=== PATIENT | female | born 1945 | race Caucasian/White ===

== ENCOUNTER → 2016-09-25 | Outpatient (CLI) | payer MEDICARE, BC ==
[~2016-09-25] MED LIST: CHLO25TA PO; ERGO500017 PO; FORM12CA PO; LEVA15HF2 PO; LISI2.5T PO; MONT10TA9 PO; POTA20TA6 PO; PRED2.5T PO; UMEC1DIS INH; VITAMIN D SC
== END | disposition home or self-care (01) ==
LOC: STAR 10:41
PROVIDERS: ATTEND Surgery
DX: Z01.810 Encounter for preprocedural cardiovascular examination (principal); K80.10 Calculus of gallbladder with chronic cholecystitis without obstruction
CPT/HCPCS: 93005

== ENCOUNTER 2016-09-30 11:06 | Day surgery (SDC) | payer MEDICARE, BC ==
[~2016-09-30] VITALS: Ht 156.2 cm; Wt 44.5 kg
[~2016-09-30 11:06] MED LIST changes: +BUPIVACAINE/PF-EPI 0.5% 1:200K ONE
[2016-09-30] MEDS ORDERED: LIDOCAINE 1%, 2ML ONE (11:55)
[2016-09-30] MEDS ORDERED: LACTATED RINGERS 1,000 ML IV SCH (11:57)
[2016-09-30 11:58] VITALS: BP 150/90
[2016-09-30] MEDS ORDERED: LIDOCAINE 1%, 2ML SQ PRN (12:00)
[2016-09-30] MEDS ORDERED: INDOCYANINE GREEN 25 MG VIAL IV ONE (12:12)
[2016-09-30] MEDS ORDERED: INDOCYANINE GREEN 25 MG VIAL ONE (12:30)
[2016-09-30] MEDS ORDERED: SCOPOLAMINE PATCH, 1.5MG PATCH.TD72 TD ONE ×2 (12:55)
[2016-09-30] MEDS ORDERED: FENTANYL PF 250 MCG/5ML ONE ×2 (12:55)
[2016-09-30] MEDS ORDERED: MIDAZOLAM 1 MG/ML, 2ML ONE ×2 (12:55)
[2016-09-30] MEDS ORDERED: GLYCOPYRROLATE 0.2MG/1ML ONE (13:03)
[2016-09-30] MEDS ORDERED: DEXAMETHASONE 4 MG/ML, 1ML ONE (13:03)
[2016-09-30] MEDS ORDERED: NEOSTIGMINE 1 MG/ML, 10ML ONE (13:03)
[2016-09-30] MEDS ORDERED: LABETALOL 5MG/ML 40ML VIAL ONE (13:03)
[2016-09-30] MEDS ORDERED: KETOROLAC 30 MG/1 ML ONE (13:03)
[2016-09-30] MEDS ORDERED: PROPOFOL 10 MG/ML, 20ML ONE (13:03)
[2016-09-30] MEDS ORDERED: ONDANSETRON 2MG/ML, 2ML ONE (13:03)
[2016-09-30] MEDS ORDERED: ROCURONIUM 10 MG/ML ONE (13:03)
[2016-09-30] MEDS ORDERED: CEFOTETAN 1 GM ONE (13:03)
[2016-09-30] MEDS ORDERED: METOCLOPRAMIDE 5 MG/ML, 2ML ONE (13:03)
[2016-09-30] MEDS ORDERED: OXYcodone 5 MG/5 ML ORAL.SOL UDC PO PRN (13:30)
[2016-09-30] MEDS ORDERED: PROMETHAZINE 25 MG/ML, 1ML IV PRN (13:30)
[2016-09-30] MEDS ORDERED: hydrALAzine 20 MG/ML, 1ML IV PRN (13:30)
[2016-09-30] MEDS ORDERED: ACETAMINOPHEN 325 MG TABLET PO PRN (13:30)
[2016-09-30] MEDS ORDERED: HYDROmorphone 1 MG/ML, 1ML IV PRN (13:30)
[2016-09-30] MEDS ORDERED: LABETALOL 5MG/ML, 20ML IV PRN (13:30)
[2016-09-30] MEDS ORDERED: ONDANSETRON 2MG/ML, 2ML IVPush PRN (13:30)
[2016-09-30] MEDS ORDERED: FENTANYL PF 100 MCG/2ML IV PRN (13:30)
== END 2016-09-30 18:20 | disposition home or self-care (01) ==
LOC: OUT 11:06
PROVIDERS: ATTEND Surgery
DX: K80.10 Calculus of gallbladder with chronic cholecystitis without obstruction (principal); I10 Essential (primary) hypertension; J44.9 Chronic obstructive pulmonary disease, unspecified; J45.909 Unspecified asthma, uncomplicated; K66.0 Peritoneal adhesions (postprocedural) (postinfection); I70.211 Atherosclerosis of native arteries of extremities with intermittent claudication, right leg; Z85.3 Personal history of malignant neoplasm of breast; G60.8 Other hereditary and idiopathic neuropathies; Z88.6 Allergy status to analgesic agent; Z80.3 Family history of malignant neoplasm of breast; Z88.2 Allergy status to sulfonamides; Z90.12 Acquired absence of left breast and nipple
CPT/HCPCS: 47562; 88304; J1100; J1885; J2250; J2405; J2704; J2710; J2765; J3010; J3490; J7120; S0074